=== PATIENT | male | born 2000 | race Caucasian/White ===

== ENCOUNTER 2023-08-13 08:01 | Outpatient (REF) | payer OTHER, SELFPAY ==
--- NOTE | ~2023-08-13 | US_ITS ---
EXAMINATION: US SCROTUM CLINICAL INFORMATION: History of left epididymitis one year ago with left scrotal mass one year ago in [place] per patient. Patient reports pain and increased size. COMPARISON: None available. TECHNIQUE: A sonogram of the scrotum was performed assessing garcia-scale appearance and color Doppler flow. Spectral Doppler analysis of the arterial and venous flow were performed in the testes bilaterally. FINDINGS: RIGHT: Right testicle measures 4.2 x 2.5 x 3.2 cm, volume 18 mL. Tiny echogenic foci within the testicle are characteristic of microlithiasis. Spectral Doppler analysis of the arterial and venous flow is normal in the right testis. Right epididymal head is normal in size. No right varicocele is seen. Small right hydrocele. Right epididymal Doppler flow is normal. LEFT: Left testicle measures 4.5 x 2.7 x 3.5 cm, volume 22 mL. Tiny echogenic foci within the testicle are characteristic of microlithiasis. Spectral Doppler analysis of the arterial and venous flow is normal in the left testis. Left epididymal head is normal in size. No left varicocele is seen. Small hydrocele. Left epididymal Doppler flow is normal. US/US scrotum IMPRESSION: 1. Bilateral testicular microlithiasis. 2. Small bilateral hydroceles.
== END 2023-08-13 08:02 | disposition home or self-care (01) ==
LOC: HO.UMASIMG 08:01
PROVIDERS: Visit Provider Physician Assistant Medical
DX: N50.812 Left testicular pain (principal)
CPT/HCPCS: 76870